=== PATIENT | male | born 1970 | race Caucasian/White ===

== ENCOUNTER 2018-06-11 11:24 | Inpatient (IN) | payer BC ==
[~2018-06-11 11:24] MED LIST: DESFLURANE 15 MIN
[2018-06-11 13:12] LABS: ADD MAN DIFF? NO
[2018-06-11 13:16] LABS: BASOPHILS % 0.3 % (0.0-2.0); EOSINOPHILS % 0.3 % (0.0-7.0); HEMATOCRIT 39.9 % (42.0-52.0); HEMOGLOBIN 13.7 g/dl (14.0-18.0); LYMPHOCYTES # 2.3 10^3/ul (0.8-2.9); LYMPHOCYTES % 16.6 % (15.0-51.0); MEAN CORPUSCULAR HEMOGLOBIN 30.8 pg (29.0-33.0); MEAN CORPUSCULAR HGB CONC 34.3 g/dl (32.0-37.0); MEAN CORPUSCULAR VOLUME 89.7 fl (82.0-101.0); MEAN PLATELET VOLUME 9.6 fl (7.4-10.4); MONOCYTE # 1.4 10^3/ul (0.3-0.9); MONOCYTES % 10.5 % (0.0-11.0); NEUTROPHIL # 9.8 10^3/ul (1.6-7.5); PLATELET COUNT 228 10^3/UL (140-415); RED BLOOD COUNT 4.45 10^6/ul (4.70-6.10)
[2018-06-11 13:16] LABS: WHITE BLOOD COUNT 13.6 10^3/ul (4.8-10.8)
[2018-06-11 13:19] LABS: ADD UMIC YES; UR ASCORBIC ACID NEGATIVE (NEGATIVE); UR BILIRUBIN (Dip) NEGATIVE (NEGATIVE); UR BLOOD (Dip) 1+ mg/dL (NEGATIVE); UR CLARITY CLEAR (CLEAR); UR COLOR AMBER (YELLOW); UR GLUCOSE (Dip) NEGATIVE (NEGATIVE); UR KETONES (Dip) NEGATIVE (NEGATIVE); UR LEUKOCYTE ESTERASE (Dip) NEGATIVE Leu/ul (NEGATIVE); UR NITRITE (Dip) NEGATIVE (NEGATIVE); UR RBC 1 /HPF (0-5); UR SPECIFIC GRAVITY (Dip) 1.016 (1.003-1.030); UR TOTAL PROTEIN (Dip) NEGATIVE (NEGATIVE); UR UROBILINOGEN (Dip) NEGATIVE (NEGATIVE); UR WBC 3 /HPF (0-5)
[2018-06-11] MEDS: morphine 4 MG/ML VIAL IV (13:26)
[2018-06-11] MEDS: ACETAMINOPHEN 325 MG TAB PO (13:26)
[2018-06-11] MEDS: ONDANSETRON 4 MG INJ IV (13:26)
[2018-06-11] MEDS: SOD CHLORIDE 0.9% 1,000 ML IV (13:26)
[2018-06-11 13:34] LABS: ALANINE AMINOTRANSFERASE 33 IU/L (13-69); ALBUMIN 4.4 g/dl (3.3-4.9); ALBUMIN/GLOBULIN RATIO 1.25; ALKALINE PHOSPHATASE 66 IU/L (42-121); ANION GAP 11 (5-13); ASPARTATE AMINO TRANSFERASE 32 IU/L (15-46); BILIRUBIN,INDIRECT 0.6 mg/dl (0-1.1); BILIRUBIN,TOTAL 0.6 mg/dl (0.2-1.3); BLOOD UREA NITROGEN 11 mg/dl (7-20); CALCIUM 9.2 mg/dl (8.4-10.2); CARBON DIOXIDE 31 mmol/L (21-31); CHLORIDE 97 mmol/L (97-110); CREATININE 0.64 mg/dl (0.61-1.24); Estimated GFR > 60 mL/min (>60); GLUCOSE 115 mg/dl (70-220); LIPASE 48 U/L (23-300); POTASSIUM 3.5 mmol/L (3.5-5.1); SODIUM 139 mmol/L (135-144); TOTAL PROTEIN 7.9 g/dl (6.1-8.1)
[2018-06-11] MEDS: AMPICILLIN/SULB 3 GM/NS (PMX) 100 ML IVPB (14:07)
[2018-06-11] MEDS ORDERED: ONDANSETRON 4 MG INJ IV ×2 (14:30→17:00)
[2018-06-11] MEDS ORDERED: ACETAMINOPHEN 325 MG TAB PO ×2 (14:30→17:00)
[2018-06-11] MEDS ORDERED: morphine 2 MG INJ IV (15:00)
[2018-06-11] MEDS ORDERED: NACL 0.9% 3 ML SYG IV (15:00)
[2018-06-11 15:08] LABS: INR 1.01; PROTIME 13.4 Sec (11.9-14.9)
[2018-06-11 15:09] LABS: PARTIAL THROMBOPLASTIN TIME 35.1 Sec (23.0-35.0)
[2018-06-11 15:14] LABS: TROPONIN-I < 0.012 ng/ml (0.000-0.120)
[2018-06-11] MEDS ORDERED: MIDAZOLAM 1 MG/ML 2 ML INJ (16:39)
[2018-06-11] MEDS ORDERED: ROCURONIUM 50 MG INJ (16:39)
[2018-06-11] MEDS ORDERED: ROPIVACAINE 0.5 % 30 ML VIAL (16:39)
[2018-06-11] MEDS ORDERED: FENTAnyl 50 MCG/ML VIAL (16:39)
[2018-06-11] MEDS ORDERED: PROPOFOL 20 ML (16:39)
[2018-06-11] MEDS: D5-NS + KCL 20 MEQ 1,000 ML IV ×2 (16:53→22:01)
[2018-06-11] MEDS ORDERED: HYDROCODONE/APAP (10/325) TAB PO (17:00)
[2018-06-11] MEDS ORDERED: morphine 4 MG/ML VIAL IV (17:00)
[2018-06-11] MEDS: PIPER-TAZO 3.375 GM IV (PMX) 100 ML IVPB ×4 (17:11→23:08)
[2018-06-11] MEDS ORDERED: METOCLOPRAMIDE 10 MG INJ (17:42)
[2018-06-11] MEDS ORDERED: SUGAMMADEX SODIUM 200 MG/2 ML VIAL IV (17:42)
[2018-06-11] MEDS ORDERED: DEXAMETHASONE 4 MG/ML 5 ML INJ (17:42)
[2018-06-11] MEDS ORDERED: KETOROLAC 30 MG INJ (17:42)
[2018-06-11] MEDS ORDERED: ONDANSETRON 4 MG INJ (17:42)
[2018-06-12] MEDS: PIPER-TAZO 3.375 GM IV (PMX) 100 ML IVPB ×2 (05:15→12:14)
[2018-06-12 06:02] LABS: ALANINE AMINOTRANSFERASE 23 IU/L (13-69); ALBUMIN 3.9 g/dl (3.3-4.9); ALBUMIN/GLOBULIN RATIO 1.11; ALKALINE PHOSPHATASE 61 IU/L (42-121); ANION GAP 6 (5-13); ASPARTATE AMINO TRANSFERASE 29 IU/L (15-46); BILIRUBIN,INDIRECT 0.2 mg/dl (0-1.1); BILIRUBIN,TOTAL 0.2 mg/dl (0.2-1.3); BLOOD UREA NITROGEN 11 mg/dl (7-20); CALCIUM 9.5 mg/dl (8.4-10.2); CARBON DIOXIDE 30 mmol/L (21-31); CHLORIDE 105 mmol/L (97-110); CREATININE 0.65 mg/dl (0.61-1.24); Estimated GFR > 60 mL/min (>60); GLUCOSE 191 mg/dl (70-220); POTASSIUM 4.4 mmol/L (3.5-5.1); SODIUM 141 mmol/L (135-144); TOTAL PROTEIN 7.4 g/dl (6.1-8.1)
[2018-06-12] MEDS: ENOXAPARIN 40 MG/0.4 ML SYG SC (06:56)
[2018-06-12 07:59] LABS: HEMOGLOBIN A1C 5.9 % (0-5.9)
[2018-06-12] MEDS: IBUPROFEN 600 MG TAB PO (08:31)
[2018-06-12] MEDS: D5-NS + KCL 20 MEQ 1,000 ML IV (09:57)
== END 2018-06-12 14:19 | disposition home or self-care (01) | DRG 343 ==
LOC: E/R 11:24 → PP2 14:08
PROC: 0DTJ4ZZ Resection of Appendix, Percutaneous Endoscopic Approach (ICD-10-PCS; principal; 2018-06-11 16:30)
DX: K35.80 Unspecified acute appendicitis (principal)
CPT/HCPCS: 36415; 71045; 74176; 80053; 81001; 83036; 83690; 84484; 85025; 85610; 85730; 88304; 93005; 96374; 99285-25